=== PATIENT | male | born 1985 | race Caucasian/White ===

== ENCOUNTER → 2019-12-14 | Outpatient (REF) | payer BC ==
[~2019-12-14] MED LIST: FLEXERIL OR; IBUP-1022 PO; NAPR-837 PO; PERCOCET PO
[2019-12-14 14:49] LABS: INFLUENZA A AMPLIFICATION NEGATIVE (NEGATIVE); INFLUENZA B AMPLIFICATION POSITIVE (NEGATIVE)
== END ==
LOC: M LAB REF 13:54
PROVIDERS: ATTEND Physician Assistant
DX: J10.1 Influenza due to other identified influenza virus with other respiratory manifestations (principal)